=== PATIENT | male | born 1945 | race Caucasian/White ===

== ENCOUNTER 2017-07-15 07:15 | Inpatient (IN) | payer OTHER, MEDICARE ==
--- NOTE | 2017-08-11 18:01 | GHP ---
[f rep st] PREOP HISTORY AND PHYSICAL DATE OF ADMISSION: 08/12/2017 HISTORY: The patient is a 72-year-old male who presents with left knee severe osteoarthritis. His r ight knee has been successfully replaced. He has a long history of knee arthritis. On the left side , his care has included physical therapy, steroid, and a Visco supplementation series that are of lit tle effect at this point. He has tried medications. He has pain and alteration in his gait; he is l imping. He has limited motion. IMAGING: X-rays of the left knee show a tricompartment osteoarthritis, degenerative lipping, subchon dral sclerosis, and joint space narrowing. A left total knee arthroplasty is planned. PAST MEDICAL HISTORY: Significant for prostate cancer, bladder cancer, and a renal tumor. The renal tumor involved the collecting system. In the early part of 2015, he finished up chemotherapy for hi s bladder. He has coronary artery disease. He underwent stress testing in December 2015 and was fou nd to be free of ischemic problems, and the ejection fraction was 58%. MEDICATIONS: Include calcium, glucosamine, Aleve, takes an aspirin 81 mg p.o. daily, uses tramadol f or pain 50 mg tablets, simvastatin 40 mg p.o. daily, metoprolol 25 mg/hydrochlorothiazide 12.5 mg 1 t ablet daily. PAST SURGICAL HISTORY: Includes a prostatectomy as well as surgery for his renal collecting system. He has had a left knee scope back in 2003, and he has undergone a right total knee arthroplasty. ALLERGIES: No known drug allergies. SOCIAL HISTORY: A former smoker. REVIEW OF SYSTEMS: Positive for coronary artery disease. PHYSICAL EXAMINATION: GENERAL: The patient is a well-developed, well-nourished male, in no apparent distress. HEAD AND NECK: Normocephalic, atraumatic. CHEST: Clear. CARDIOVASCULAR: Regular rate and rhythm. ABDOMEN: Soft. NEUROLOGIC: Alert and oriented x3. EXTREMITIES: Exam of the left kne e shows a flexion contracture of about 5-10 degrees. He flexes to about 115 degrees. He has bony pr ominence and tenderness along the joint line. Skin and sensation intact. He has good distal circula tion. IMPRESSION: Left knee osteoarthritis. PLANS: A left total knee arthroplasty. Benefits and risks of surgery have been reviewed. He unders tands that the risks include infection, damage to blood vessels or nerves, failure or loosening of th e components, need for revision. There is a risk of blood clot in the leg or lungs, bleeding, and ne ed for transfusion. He has signed his consent form, and he wishes to proceed. /[id number]/MODL
[2017-08-12] MEDS ORDERED: PROPOFOL/EMULSION 500 MG/50 ML BOTTLE IV ONE (09:17)
[2017-08-12] MEDS ORDERED: LIDOCAINE 1% 2 ML INJ ONE (09:29)
[2017-08-12] MEDS ORDERED: DEXAMETHASONE 4 MG/ML VIAL IVP ONE (09:32)
[2017-08-12] MEDS ORDERED: TRANEXAMIC ACID 1,000 MG in NS 100 ML IV ONE (09:32)
[2017-08-12] MEDS ORDERED: ceFAZolin 2 GM/DEXTROSE 100 ML IV ONE (09:32)
[2017-08-12] MEDS ORDERED: LIDOCAINE 1% 2 ML INJ ID PRN (09:32)
[2017-08-12] MEDS ORDERED: FAMOTIDINE 20 MG TAB PO ONE (09:32)
[2017-08-12] MEDS ORDERED: ACETAMINOPHEN 325 MG TAB PO ONE (09:32)
[2017-08-12] MEDS ORDERED: POVIDONE-IODINE 20 ML in SODIUM CL IRRIG SOLUTION 500 ML IRR ONE (09:32)
[2017-08-12] MEDS ORDERED: ROPIVACAINE 0.2% 80 MG, EPINEPHrine 0.2 MG, KETOROLAC TROMETHAMINE 30 MG in BAG 0 ML IU ONE (09:32)
[2017-08-12] MEDS ORDERED: LR 1,000 ML IV ONE (09:32)
[2017-08-12] MEDS ORDERED: ceFAZolin 1 GM/5 ML SYR ONE (10:11)
[2017-08-12 10:38] LABS: ALANINE AMINOTRANSFERASE 35 IU/L (21-72); ALBUMIN 4.4 g/dL (3.5-5.0); ALKALINE PHOSPHATASE 61 IU/L (38-126); ANION GAP 14 mEq/L (8-16); ASPARTATE AMINOTRANSFERASE 25 IU/L (17-59); BILIRUBIN,TOTAL 1.1 mg/dL (0.1-1.4); CALCIUM 9.8 mg/dL (8.5-10.4); CARBON DIOXIDE 24 mEq/l (22-31); CHLORIDE 103 mEq/L (97-110); CREATININE 1.1 mg/dL (0.7-1.3); GLOMERULAR FILTRATION RATE > 60; GLUCOSE 93 mg/dL (70-100); POTASSIUM 4.8 mEq/L (3.5-5.2); SODIUM 141 mEq/L (134-144); TOTAL PROTEIN 7.8 g/dL (6.3-8.2)
[2017-08-12] MEDS ORDERED: MIDAZOLAM 2 MG/2 ML VIAL ONE ×2 (11:09→11:35)
[2017-08-12] MEDS ORDERED: fentaNYL 100 MCG/2 ML INJ ONE ×3 (11:39→13:49)
[2017-08-12] MEDS ORDERED: ONDANSETRON 4 MG/2 ML VIAL ONE (11:58)
[2017-08-12] MEDS ORDERED: ROCURONIUM 50 MG/5 ML VIAL ONE ×2 (11:58→11:59)
[2017-08-12] MEDS ORDERED: SUGAMMADEX SODIUM 200 MG/2 ML VIAL IVP ONE (11:58)
[2017-08-12] MEDS ORDERED: LIDOCAINE 2% 5 ML SDV ONE (11:58)
[2017-08-12] MEDS ORDERED: METOPROLOL TARTRATE 5 MG/5 ML INJ ONE (12:00)
[2017-08-12] MEDS ORDERED: ALBUTEROL 3 ML DEYVIAL IH PRN (12:09)
[2017-08-12] MEDS ORDERED: MEPERIDINE 25 MG/ML SYR IVP PRN (12:09)
[2017-08-12] MEDS ORDERED: NALOXONE HCL 0.4 MG/ML INJ IVP PRN (12:09)
[2017-08-12] MEDS ORDERED: LR 500 ML IV PRN (12:09)
[2017-08-12] MEDS ORDERED: ONDANSETRON 4 MG/2 ML VIAL IVP PRN ×2 (12:09→13:32)
--- NOTE | 2017-08-12 12:09 | PDANEPAE ---
ANE Past Medical History - Cardiovascular History Hx Hypertension: Yes Hx Arrhythmias: No Hx Chest Pain: No Hx Coronary Artery / Peripheral Vascular Disease: Yes Hx CHF / Valvular Disease: No Hx Palpitations: No Cardiovascular History Comment: "BP 130 or less". NV in 1994 "heart has been stable" - Pulmonary History Hx COPD: Yes Hx Asthma/Reactive Airway Disease: No Hx Recent Upper Respiratory Infection: No Hx Oxygen in Use at Home: No Hx Sleep Apnea: Yes Sleep Apnea Screening Result - Last Documented: Positive - Neurologic History Hx Cerebrovascular Accident: No Hx Seizures: No Hx Dementia: No - Endocrine History Hx Diabetes: No - Renal History Hx Renal Disorders: Yes Renal History Comment: CA KIDNEY,BLADDER & URETER. CHEMO TXS [id number]. does F /U yearly - Liver History Hx Hepatic Disorders: No - Neurological & Psychiatric Hx Hx Neurological and Psychiatric Disorders: No - Cancer History Hx Cancer: Yes Cancer History Comment: KIDNEY, BLADDER URETER TUMORS REMOVED. PROSTATE - Congenital Disorder History Hx Congenital Disorders: No - GI History Hx Gastrointestinal Disorders: No - Other Health History Other Health History: OA painful left knee. Lamisil for nail fungus. upper and lower dentures - Chronic Pain History Chronic Pain: Yes (KNEES SINCE 2003) - Surgical History Prior Surgeries: Bilat cataract extractions w/IOL implants 2017PROSTATECTOMY. KIDNEY, BLADDER & URETER FOR CA. L KNEE SCOPE ANE Review of Systems Review of Systems: - Exercise capacity METS (RN): 4 METS ANE Patient History - Allergies Allergies/Adverse Reactions: No Known Allergies Allergy (Verified 05/16/17 10:30) - Home Medications Home Medications: Aspirin EC [Aspirin EC 81 mg (*)] 81 mg PO DAILY 05/09/17 [Last Taken 08/05/17] Atorvastatin Calcium [Lipitor 80 mg] 80 mg PO DAILY 05/09/17 [Last Taken ] Herbals/Supplements -Info Only 1 ea PO DAILY 05/09/17 [Last Taken Unknown] Metoprolol Tartrate [Lopressor 25 mg (*)] 25 mg PO BID 05/09/17 [Last Taken ] Terbinafine HCl [LamISIL 250 MG (*)] 250 mg PO DAILY 05/09/17 [Last Taken ] traMADol HCL [Ultram] 50 mg PO BID 05/09/17 [Last Taken 08/12/17] - NPO status NPO Since - Liquids (Date): 08/11/17 NPO Since - Liquids (Time): 20:00 NPO Since - Solids (Date): 08/11/17 NPO Since - Solids (Time): 20:00 - Smoking Hx Smoking Status: Former smoker - Family Anes Hx Family Hx Anesthesia Complications: NEG ANE Labs/Vital Signs - Labs Result Diagrams: 08/12/17 09:53 - Vital Signs Blood Pressure: 160/85 Heart Rate: 65 Respiratory Rate: 16 O2 Sat (%): 95 Height: 175.26 cm Weight: 99.79 kg ANE Physical Exam - Airway Mallampati Score: Class 2 Mouth exam: dentures - Pulmonary Pulmonary: no respiratory distress, no rales or rhonchi, clear to auscultation, reduced air movement - Cardiovascular Cardiovascular: regular rate and rhythym, no murmur, rub, or gallop - ASA Status ASA Status: III ANE Anesthesia Plan Anesthesia Plan: spinal Regional Anesthesia: adductor canal FNB, POPC/PSR
[2017-08-12] MEDS ORDERED: DEXAMETHASONE 10 MG/ML VIAL ONE (13:05)
[2017-08-12] MEDS ORDERED: MAGNESIUM HYDROXIDE 30 ML UDCUP PO PRN (13:32)
[2017-08-12] MEDS ORDERED: DIPHENOXYLATE/ATROPINE LOMOTIL 1 TAB PO PRN (13:32)
[2017-08-12] MEDS ORDERED: TEMAZEPAM 15 MG CAP PO PRN (13:32)
[2017-08-12] MEDS ORDERED: METOCLOPRAMIDE 10 MG/2 ML VIAL IVP PRN (13:32)
[2017-08-12] MEDS ORDERED: POLYETHYLENE GLYCOL 3350 17 GM PKT PO PRN (13:32)
[2017-08-12] MEDS ORDERED: diphenhydrAMINE 25 MG CAP PO PRN (13:32)
[2017-08-12] MEDS ORDERED: KETOROLAC 30 MG/1 ML SDV IVP PRN (13:32)
[2017-08-12] MEDS ORDERED: ONDANSETRON DISINTEGRATING 4 MG TAB PO PRN (13:32)
[2017-08-12] MEDS ORDERED: LACTULOSE 20 GM/30 ML UDCUP PO PRN (13:32)
[2017-08-12] MEDS ORDERED: PROMETHAZINE HCL 25 MG SUPPR PR PRN (13:32)
[2017-08-12] MEDS ORDERED: PROMETHAZINE HCL 25 MG/ML INJ IVP PRN (13:32)
[2017-08-12] MEDS ORDERED: BISACODYL 10 MG SUPP PR PRN (13:32)
[2017-08-12] MEDS ORDERED: CYCLOBENZAPRINE 10 MG TAB PO PRN (13:32)
[2017-08-12] MEDS: fentaNYL 100 MCG/2 ML INJ IVP PRN ×2 (13:50→14:09)
[2017-08-12] MEDS ORDERED: ceFAZolin 2 GM/DEXTROSE 100 ML IV SCH (14:00)
--- NOTE | 2017-08-12 14:20 | POSTANESTH ---
Post Anesthetic Evaluation Cardiovascular Status: Normal, Stable Respiratory Status: Normal, Stable Level of Consciousness/Mental Status: Can Participate in Eval Pain Control: Adequate, Prn Tx Ordered Nausea/Vomiting Control: Adequate, Prn Tx Ordered Complications Possibly Related to Anesthesia: None Noted
--- NOTE | 2017-08-12 14:59 | GOP ---
[f rep st] OPERATIVE REPORT DATE OF OPERATION: 08/12/2017 SURGEON: Mati Patel MD RN ADVICE: Javan Granados, CSFA, LSA. ANESTHESIOLOGIST: Brandy Boss MD. PREOPERATIVE DIAGNOSIS: Left knee osteoarthritis. POSTOPERATIVE DIAGNOSIS: Left knee osteoarthritis. PROCEDURE PERFORMED: Left total knee arthroplasty. FINDINGS: SPECIMENS: Included bone removed from the femur and tibia. ESTIMATED BLOOD LOSS: Minimal. INDICATIONS: The patient is a 72-year-old gentleman, who presents with history, x-rays, exam all con sistent with severe left knee tricompartmental osteoarthritis. He has tried appropriate conservative measures, and wishes to proceed with a total knee replacement. He has had a successful 1 on the opp osite side. DESCRIPTION OF PROCEDURE: The patient was taken to the operating room, and Dr. Boss attempted a sp inal anesthetic and was not successful, so we used a general anesthetic this time. He received 2 g o f IV Ancef, as well as a dose of tranexamic acid. A tourniquet was fit high on the left thigh, and t he left leg was prepped and draped out free in the usual fashion with chlorhexidine. The limb was el evated, exsanguinated, tourniquet inflated to 275 mmHg. I made a longitudinal incision in the midlin e. Dissection was carried down to subcutaneous tissue, and I used a medial parapatellar arthrotomy. I everted the patella after measuring its thickness, removed 9 mm of cartilage and bone. I sized th e patella to 38, drilled PEG holes, and with the trial I reconstituted the thickness of the patella. I removed osteophytes. Patella was inverted. The knee was flexed. I drilled a commercial drone pilot hole in the d istal femur using intramedullary guide for the femur in a 5-degree valgus cut. I removed 2 mm of ext ra bone for the flexion contracture and produced a good flat cut distally. I sized off of this to a size 7. I used a cutting block to make anterior, posterior, and camphor cuts, and then I made approp riate notch cuts for this bi-cruciate stabilized knee, and the trial component was a good fit. I use d an extramedullary device on the tibia, 1st dialing in rotation, posterior slope, appropriate depth of cut. I really skimmed right underneath the arthritic medial side. I made sure this was perpendic ular to the shaft of the tibia. I sized this to a 7. I dialed in the rotation, and finished the tib ial prep. All bone surfaces were jet lavaged with antibiotic irrigation. Methylmethacrylate was use d and all the components were applied, tibia 1st, then femur, then patella. Once the cement had hard ened, I did trial reductions. I found that a 10 mm insert provided appropriate stability, full exten rylee, excellent roll back in flexion, appropriate alignment. The patella tracked well. I irrigated the joint with antibiotic solution as well as a Betadine solution. I infiltrated a joint cocktail th rough the tissues around the joint. I let the tourniquet down after about an hour and a half time. I closed the arthrotomy with interrupted [id number] sutures of 0 Mersilene, subcutaneous with 2- 0 Monocryl, and the skin with kelsey. The wound was dressed with Betadine-soaked Adaptic, 4 x 4's, sterile Webril, and a long-leg Regino stocking. An adductor block was provided by Dr. Boss at the end of the case as well. There were no complications. DRAINS: No drains. INSTRUMENT COUNT: All counts were correct. DISPOSITION: The patient was taken in stable condition to recovery. My director surgical, Javan Granados, was a medical necessity for this case. SUMMARY OF COMPONENTS: This is a [employer] knee, all components cemented. The femur is Oxinium, it is a bi cruciate stabilized knee. Femur size 7, tibia size 7, patella 38 the crosslin k poly liner is 10 mm thick. /[id number]/MODL
[2017-08-12] MEDS: ACETAMINOPHEN 325 MG TAB PO SCH ×2 (17:54→23:01)
[2017-08-12] MEDS: LR 1,000 ML IV SCH (17:55)
[2017-08-12] MEDS: ceFAZolin 2 GM/DEXTROSE 100 ML IV SCH (17:58)
[2017-08-12] MEDS: FAMOTIDINE 20 MG TAB PO SCH (20:14)
[2017-08-12] MEDS: METOPROLOL TARTRATE 25 MG TAB PO SCH (20:14)
[2017-08-12] MEDS: SENNOSIDES/DOCUSATE SODIUM TAB PO SCH (20:15)
[2017-08-12] MEDS: ASPIRIN 325 MG TAB PO SCH (20:23)
[2017-08-13] MEDS: ceFAZolin 2 GM/DEXTROSE 100 ML IV SCH (02:06)
[2017-08-13] MEDS: LR 1,000 ML IV SCH (02:37)
[2017-08-13 04:57] LABS: HEMATOCRIT 34.5 % (40.0-51.0)
[2017-08-13] MEDS: ACETAMINOPHEN 325 MG TAB PO SCH ×2 (05:40→11:39)
[2017-08-13 07:28] VITALS: RESP 16
[2017-08-13] MEDS: ASPIRIN 325 MG TAB PO SCH (08:05)
[2017-08-13] MEDS: METOPROLOL TARTRATE 25 MG TAB PO SCH (08:05)
[2017-08-13] MEDS: TERBINAFINE HCL 250 MG TAB PO SCH ×2 (08:05→08:07)
[2017-08-13] MEDS: SENNOSIDES/DOCUSATE SODIUM TAB PO SCH (08:05)
[2017-08-13] MEDS: FAMOTIDINE 20 MG TAB PO SCH (08:06)
[2017-08-13] MEDS: oxyCODONE IR 5 MG TAB PO PRN ×2 (08:06→11:35)
--- NOTE | 2017-08-13 08:06 | SOAPPROG ---
SOAP Progress Note Assessment/Plan: Assessment: 08/13/17 POD#1 L TKA, pain controlled, Hct 34.5, xray fine, has been up Plan: 08/13/17 08:03 home after PT/OT, has PT set up in my office, oxy, asa Objective: Vital Signs Temp Pulse Resp BP Pulse Ox 36.4 C 85 16 135/78 H 99 08/13/17 07:26 08/13/17 07:26 08/13/17 07:26 08/13/17 07:26 08/13/17 07:26 Laboratory Results 08/13/17 04:36 08/12/17 09:53 08/12/17 08/13/17 08/14/17 05:59 05:59 05:59 Intake Total 1840 Output Total 1250 Balance 590 ICD10 Worksheet Patient Problems: Problems Problem Status Onset Osteoarthritis of right knee Acute
[2017-08-13] MEDS ORDERED: ATORVASTATIN CALCIUM 40 MG TAB PO SCH (09:00)
[2017-08-13] MEDS ORDERED: NON-FORMULARY NEW DRUG (Atorvastatin Calcium [Lipitor 80 Mg] 80 MG) PO SCH (09:00)
--- NOTE | 2017-08-13 10:34 | ASMTCMCOM ---
CM Note CM Note Notes: PT rec home vs. outpatient; pt has outpatient scheduled. Pt medically stable for d/c, no CM d/c needs identified. Date Signed: 08/13/2017 10:33 AM Electronically Signed By:CECILY Blackwlel
[2017-08-13 12:19] VITALS: BP 121/67; PULSE 79; TEMP 97.9; O2SAT 96
--- NOTE | 2017-08-13 15:28 | ASDISCHSUM ---
Discharge Information Plan Status:Home with No Needs Medically Cleared to Leave: Discharge Date:08/13/2017 01:23 PM CM D/C Disposition: ADT D/C Disposition:Home, Routine, Self-Care Projected Discharge Date:08/13/2017 01:23 PM Transportation at D/C: Discharge Delay Reason: Follow-Up Date:08/13/2017 01:23 PM Discharge Slot: Final Diagnosis: Placement Information Patient Contact Information Contact Name:FRANKIE Relationship:Olayinka Address:[address] City:[place] Alternate Phone: [facility]/Zip Code:[place] [address] Email: Financial Information Financial Class: Primary Plan Desc:MEDICARE INPATIENT Primary Plan Number:[id number] Secondary Plan Desc:[employer]/M[employer] SUPPLEMENT Secondary Plan Number:[id number] Assessment Information [facility] CM Progress Note CM Note CM Note Notes: PT rec home vs. outpatient; pt has outpatient scheduled. Pt medically stable for d/c, no CM d/c needs identified. Date Signed: 08/13/2017 10:33 AM Electronically Signed By:CECILY Blackwell Intervention Information
== END 2017-08-13 13:23 | disposition home or self-care (01) | DRG 470 ==
LOC: EEVIPCON 07:15 → F3N 08-12 09:07
PROVIDERS: ADMIT Orthopaedic Surgery; ATTEND Orthopaedic Surgery
PROC: 0SRB0J9 Replacement of Left Hip Joint with Synthetic Substitute, Cemented, Open Approach (ICD-10-PCS; principal; 2017-08-12 10:45)
DX: M17.12 Unilateral primary osteoarthritis, left knee (principal); Z96.651 Presence of right artificial knee joint; I10 Essential (primary) hypertension; I25.2 Old myocardial infarction; G47.30 Sleep apnea, unspecified; Z85.51 Personal history of malignant neoplasm of bladder; Z87.891 Personal history of nicotine dependence
CPT/HCPCS: 97110-GP; 97116-GP; 97161-GP; 97165-GO; 97530-GP; C1713; G8978-GP-CJ; G8979-GP-CI; G8980-GP-CI; G8987-GO-CI; G8988-GO-CI; G8989-GO-CI; J0171; J0690; J1100; J1885; J2250; J2405; J2704; J2795; J3010